=== PATIENT | female | born 1955 | race Caucasian/White ===

== ENCOUNTER 2019-12-02 10:05 | Outpatient (CLI) | payer MEDICARE, SELFPAY ==
--- NOTE | ~2019-12-02 | MM_ITS ---
EXAMINATION: MM screening vani BI w tien HISTORY: Screening mammogram TECHNIQUE: Craniocaudal and mediolateral oblique 3-D tomosynthesis images were obtained and synthetic 2-D images were generated. CAD analysis was submitted and interpreted. COMPARISON: 11/28/2018, 07/12/2017, 07/01/2016 bilateral digital screening mammogram examinations BREAST PARENCHYMAL COMPOSITION: FINDINGS: There is no evidence of suspicious mass, calcification, or architectural distortion to sugg est malignancy in either breast. There has been no suspicious interval change. IMPRESSION: 1. No mammographic evidence of malignancy. 2. Recommend routine screening mammography in one year. BI-RADS Category 1: Negative Reviewed, dictated and finalized at location A. 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
== END 2019-12-02 10:06 | disposition home or self-care (01) ==
LOC: ANHIMG 10:08
PROVIDERS: PCP Family Medicine; Visit Provider Family Medicine
DX: Z12.31 Encounter for screening mammogram for malignant neoplasm of breast (principal)
CPT/HCPCS: 77063; 77067

== ENCOUNTER 2020-08-11 07:56 | Outpatient (CLI) | payer MEDICARE, SELFPAY ==
--- NOTE | ~2020-08-11 | DEXA_ITS ---
Bone Density Report Name: Nuvia Hanks Age: 64 Sex: Female Ethnicity: White Date of : 1955 Indication: postmenopausal; parental hip fracture; Referring Provider: Leonidas Cesar Study: Bone densitometry was performed. Exam Date: August 11, 2020 Accession number: [id number] Bone Density: Region BMD T-score Z-score Classification AP Spine (L1-L4) 0.775 -2.5 -0.6 Osteoporosis Femoral Neck (Left) 0.647 -1.8 -0.2 Osteopenia Total Hip (Left) 0.768 -1.4 -0.1 Osteopenia Total Hip Bilateral Avg 0.805 -1.1 0.2 Osteopenia Femoral Neck (Right) 0.659 -1.7 -0.1 Osteopenia Total Hip (Right) 0.841 -0.8 0.5 Normal World Health Organization criteria for BMD impression classify patients as: Normal (T-score at or above -1.0), Osteopenia (T-score between -1.0 and -2.5), or Osteoporosis (T-score at or below -2.5). Clinical Information Provided by Patient: Parent has had a hip fracture Is being treated for osteoporosis Has used the following medications: Fosamax (i.e. alendronate) Patient maximum height was 67 Menopause Age: 48 No regular weight bearing exercise Drinks caffeinated beverages Onset of menses at age 10 Number of children 2 Missed period for more than 6 months in a row Impression: The patient has osteoporosis, based on the Total Spine T-score. The patient has risk factors, including: parental hip fracture. Discussion: It is important to ask patients whether they are taking their medications and to encourage continued and appropriate compliance with their osteoporosis therapies to reduce fracture risk. It is also important to review their risk factors and encourage appropriate calcium and vitamin D intakes, exercise, fall prevention and other lifestyle measures. Follow-Up: Consider a repeat BMD and Vertebral Fracture Assessment (VFA) exam in 2 years or sooner if medically necessary, to reassess this patient's status. Reported by: ELLIE on 08/11/2020 8:36:00 AM. Reviewed, dictated and finalized at location AAba [facility] CENTER[facility]id
== END 2020-08-11 07:57 | disposition home or self-care (01) ==
PROVIDERS: PCP Family Medicine; Visit Provider Family Medicine
DX: M81.0 Age-related osteoporosis without current pathological fracture (principal); Z78.0 Asymptomatic menopausal state; M85.852 Other specified disorders of bone density and structure, left thigh; M85.851 Other specified disorders of bone density and structure, right thigh
CPT/HCPCS: 77080

== ENCOUNTER 2021-07-28 13:31 | Outpatient (CLI) | payer MEDICARE, SELFPAY ==
--- NOTE | ~2021-07-28 | MM_ITS ---
EXAMINATION: MM screening vani BI w tien HISTORY: Screening mammogram TECHNIQUE: Craniocaudal and mediolateral oblique 3-D tomosynthesis images were obtained and synthetic 2-D images were generated. CAD analysis was submitted and interpreted. Comparison: 12/02/2019, 11/28/2018, 07/12/2017 bilateral digital screening mammogram examinations BREAST PARENCHYMAL COMPOSITION: There are scattered areas of fibroglandular density. FINDINGS: There is no evidence of suspicious mass, calcification, or architectural distortion to sugg est malignancy in either breast. There has been no suspicious interval change. IMPRESSION: 1. No mammographic evidence of malignancy. 2. Recommend routine screening mammography in one year. BI-RADS Category 1: Negative Reviewed, dictated and finalized at location A.
== END 2021-07-28 13:32 | disposition home or self-care (01) ==
PROVIDERS: PCP Family Medicine; Visit Provider Family Medicine
DX: Z12.31 Encounter for screening mammogram for malignant neoplasm of breast (principal)
CPT/HCPCS: 77063; 77067

== ENCOUNTER 2021-09-24 00:30 | Day surgery (SDC) | payer MEDICARE, SELFPAY ==
[2021-09-08 09:45] VITALS: BMI 32.5
[2021-09-24 10:17] VITALS: BP 161/78; PULSE 78; RESP 20; TEMP 36.3; O2SAT 100; BMI 31.8
[2021-09-24] MEDS: LACTATED RINGERS 1,000 ML 150 ML IV CONT (10:27)
--- NOTE | 2021-09-24 10:34 | P.PNAN_ITS ---
Anes - Initial Pre Proc Eval Procedure: Operation Date: 09/24/21 11:30 Proposed Procedures p Screening Colonoscopy - Riki Tao MD Date/Time: 09/24/21 10:34 Surgeon: Riki Tao MD Pre Op Diagnosis: hx of colon polyps Patient Data Age: 65 Gender: F Height: 1.65 m Weight: 86.9 kg Last Vital Signs Temp 36.3 C L 09/24/21 10:17 Pulse 78 09/24/21 10:17 Resp 20 09/24/21 10:17 BP 161/78 H 09/24/21 10:17 Pulse Ox 100 09/24/21 10:17 Allergies Allergy/AdvReac Type Severity Reaction Status Date / Time No Known Allergies Allergy Verified 09/24/21 10:16 Home Medications Medication Instructions Recorded Confirmed Type atorvastatin 20 mg tablet 20 mg PO QHS #90 tablet 07/23/21 09/08/21 Rx fluticasone propionate 50 1 spray INTRANASAL DAILY 07/28/21 09/08/21 History mcg/actuation nasal spray,suspension alendronate [Fosamax] See Rx Instructions .ROUTE .COMPLEX 09/08/21 09/08/21 History cetirizine [Zyrtec] 10 mg PO DAILY 09/08/21 09/08/21 History Patient hx anesthesia problems: none Family hx anesthesia problems: none Results Review: All pre-operative results and documents have been reviewed as part of the pre-operative evaluation. [facility] Surgical History Surgical History History of appendectomy (~1973) Family History Family History Mother Family history of cardiovascular disease, Onset Age: 86 Family history of coronary artery disease, Onset Age: 86 Father Family history of genitourinary disease, Onset Age: 80 Malignant neoplasm of prostate, Onset Age: 80 Other Family history of hypercholesterolemia Social History Social History Smoking status: Never smoker Alcohol intake: never Substance use type: does not use Living arrangements: with family Anes - Eval Final PreProcedure Day of Procedure 09/24/21 10:34 Patient weight: obese Heart: regular rate and rhythm Lungs: clear to auscultation Airway: Mallampati scale class II Neurological: alert and oriented Last oral intake: >/= 8 hours ASA classification: II Emergent: no Anesthetic plan: proceed Anesthesia type and monitoring: general GIVS and standard monitoring Results Review: All pre-operative results and documents have been reviewed as part of the pre-operative evaluation. Informed Consent: The patient's anesthetic plan and its attendant risks and benefits were discussed with the patient/family/POA. Questions were solicited and answers provided to the satisfaction of the patient/family/POA.
--- NOTE | 2021-09-24 10:44 | WPDGICN ---
Assessment and Plan Assessment and plan (1) Encounter for screening colonoscopy: Code(s): Z12.11 - Encounter for screening for malignant neoplasm of colon Status: Acute Assessment and Plan: Patient presents for screening colonoscopy. She did have a benign hyperplastic colon polyp 6 years ago. Further recommendations will be given after endoscopy. GI Consult Note Consult date/time: 09/24/21 10:44 HPI: Nuvia Hanks is a 65 year old female Presents for screening colonoscopy. Patient has a history of colon polyps 6 years ago. She reports that her current weight appetite bowel movements are normal. She denies abdominal pain. She has had no bleeding. Family history is noncontributory. Review of Systems Review of Systems: All systems reviewed & are unremarkable except as noted in HPI and below PMFSH Surgical History Surgical History History of appendectomy (~1973) Family History Family History Mother Family history of cardiovascular disease, Onset Age: 86 Family history of coronary artery disease, Onset Age: 86 Father Family history of genitourinary disease, Onset Age: 80 Malignant neoplasm of prostate, Onset Age: 80 Other Family history of hypercholesterolemia Social History Social History Smoking status: Never smoker Alcohol intake: never Substance use type: does not use Living arrangements: with family Meds Home Medications and Allergies Home Medications Medication Instructions Recorded Confirmed Type atorvastatin 20 mg tablet 20 mg PO QHS #90 tablet 07/23/21 09/08/21 Rx fluticasone propionate 50 1 spray INTRANASAL DAILY 07/28/21 09/08/21 History mcg/actuation nasal spray,suspension alendronate [Fosamax] See Rx Instructions .ROUTE .COMPLEX 09/08/21 09/08/21 History cetirizine [Zyrtec] 10 mg PO DAILY 09/08/21 09/08/21 History Allergies Allergy/AdvReac Type Severity Reaction Status Date / Time No Known Allergies Allergy Verified 09/24/21 10:16 Vital Signs Vital Signs - 24 hr 09/24/21 10:17 Temperature 97.3 F L Pulse Rate 78 Respiratory Rate 20 Blood Pressure 161/78 H Pulse Oximetry 100 Exam Narrative: Physical exam reveals patient be alert. Vital signs stable. HEENT exam is unremarkable. Patient is anicteric. Lungs are clear to auscultation and percussion. Heart is without murmur or extra sounds. Abdominal exam bowel sounds are present soft nontender with no organomegaly. Digital external rectal exam is normal.
[2021-09-24 11:05] VITALS: BP 99/62; PULSE 73; RESP 16; O2SAT 100
[2021-09-24 11:15] VITALS: BP 131/76; PULSE 67; RESP 16; O2SAT 100
[2021-09-24 11:25] VITALS: BP 153/67; PULSE 60; RESP 16; O2SAT 100
== END 2021-09-24 11:35 | disposition home or self-care (01) ==
PROVIDERS: PCP Family Medicine; Visit Provider Internal Medicine Gastroenterology
PROC: 0DJD8ZZ Inspection of Lower Intestinal Tract, Via Natural or Artificial Opening Endoscopic (ICD-10-PCS; CPT 45378; principal; 2021-09-24 11:30)
DX: Z12.11 Encounter for screening for malignant neoplasm of colon (principal); K64.8 Other hemorrhoids; Z86.010 Personal history of colon polyps; E66.9 Obesity, unspecified; Z68.31 Body mass index [BMI] 31.0-31.9, adult
CPT/HCPCS: G0105; J2704; J7120

== ENCOUNTER → 2022-02-24 07:38 | Outpatient (CLI) | payer MEDICARE, SELFPAY ==
--- NOTE | ~2022-02-24 | US_ITS ---
EXAMINATION: US right upper quadrant DATE: 02/24/2022 08:12 INDICATION: Elevated liver function tests TECHNIQUE: Multiple grayscale and Doppler ultrasound images of the abdomen were obtained. COMPARISON: None available FINDINGS: The head and body of the pancreas are normal. The pancreatic tail is obscured by bowel gas. Multiple liver cysts are seen which measure up to 1.9 cm The liver is otherwise normal with normal e chogenicity and echotexture. No surface nodularity. Normal hepatopetal flow in the main portal vein. The gallbladder is normal with no abnormal wall thickening, pericholecystic fluid or stones. The norm al common bile duct measures 3 mm. There was no sonographic Terry sign. IMPRESSION: 1. No sonographic correlate for the patient's symptoms. Reviewed, dictated and finalized at location B.
== END ==
PROVIDERS: PCP Family Medicine; Visit Provider Physician Assistant
DX: R74.8 Abnormal levels of other serum enzymes (principal)
CPT/HCPCS: 76705

== ENCOUNTER 2022-08-22 10:11 | Outpatient (CLI) | payer MEDICARE, SELFPAY ==
--- NOTE | ~2022-08-22 | DEXA_ITS ---
Bone Density Report Name: CHRISTINE HAYDEN Age: 66 Sex: Female Ethnicity: White Date of : 1955 Indication: postmenopausal osteoporosis; monitoring treatment; parental hip fracture; Referring Provider: ANALISA NIELSON Study: Bone densitometry was performed. Exam Date: August 22, 2022 Accession number: [id number] Bone Density: Region BMD T-score Z-score Classification AP Spine(L1-L4) 0.790 -2.3 -0.3 Osteopenia Femoral Neck (Left) 0.634 -1.9 -0.2 Osteopenia Total Hip (Left) 0.783 -1.3 0.1 Osteopenia Femoral Neck (Right) 0.627 -2.0 -0.3 Osteopenia Total Hip (Right) 0.792 -1.2 0.2 Osteopenia Total Hip Mean 0.788 -1.3 0.2 Osteopenia World Health Organization criteria for BMD impression classify patients as: Normal (T-score at or above -1.0), Osteopenia (T-score between -1.0 and -2.5), or Osteoporosis (T-score at or below -2.5). 10-year Fracture Risk: FRAX not reported because: Treated for osteoporosis Previous Exams: Region Exam Age BMD T-score BMD Change BMD Change Date g/cm2 vs Baseline vs Previous AP Spine (L1-L4) 08/22/2022 66 0.790 -2.3 0.015 (2.0%) 0.015 (2.0%) 08/11/2020 64 0.775 -2.5 Total Hip(Left) 08/22/2022 66 0.783 -1.3 0.015 (1.9%) 0.015 (1.9%) 08/11/2020 64 0.768 -1.4 Total Hip(Right) 08/22/2022 66 0.792 -1.2 -0.048 (-5.8%) -0.048 (-5.8%) 08/11/2020 64 0.841 -0.8 *Denotes significance at 95% confidence level, LSC for AP Spine = 0.022 g/cm2, LSC for Total Hip = 0.027 g/cm2 Clinical Information Provided by Patient: Parent has had a hip fracture Is being treated for osteoporosis Has used the following medications: Fosamax (i.e. alendronate), Vitamin D, Calcium Patient maximum height was 64 Menopause Age: 48 Drinks caffeinated beverages Onset of menses at age 11 Number of children 2 Impression: The patient has low bone mass, based on the Total Spine T-score. The patient has risk factors, including: parental hip fracture. The BMD for the Total Hip(Right) decreased, changing by -5.8% since the last DXA exam. Discussion: SIGNIFICANT BONE LOSS OBSERVED. Adherence to therapy (including calcium and vitamin D intake) should be assessed. If compliance is not a factor, review management and exclusion of secondary causes of bone loss. It is important to ask patients whether they are taking their medications and to encourage continued and appropriate compliance with their osteoporosis therapies to redu
--- NOTE | ~2022-08-22 | MM_ITS ---
EXAMINATION: MM screening vani BI w tien HISTORY: Screening TECHNIQUE: Craniocaudal and mediolateral oblique 3-D tomosynthesis images were obtained and synthetic 2-D images were generated. CAD analysis was submitted and interpreted. COMPARISON: Comparison to multiple prior studies sequentially, with oldest reviewed study dated 05/02. BREAST PARENCHYMAL COMPOSITION: Breast composed of scattered areas of fibroglandular density FINDINGS: There is no evidence of suspicious mass, calcification, or architectural distortion to sugg est malignancy in either breast. There has been no suspicious interval change. IMPRESSION: 1. No mammographic evidence of malignancy. 2. Recommend routine screening mammography in one year. BI-RADS Category 1: Negative Reviewed, dictated and finalized at location A.
== END 2022-08-22 10:12 | disposition home or self-care (01) ==
LOC: ANHIMG 10:15
PROVIDERS: PCP Family Medicine; Visit Provider Physician Assistant
DX: Z12.31 Encounter for screening mammogram for malignant neoplasm of breast (principal); M81.0 Age-related osteoporosis without current pathological fracture; M85.88 Other specified disorders of bone density and structure, other site; M85.852 Other specified disorders of bone density and structure, left thigh; M85.851 Other specified disorders of bone density and structure, right thigh
CPT/HCPCS: 77063; 77067; 77080

== ENCOUNTER 2023-11-22 13:29 | Outpatient (CLI) | payer MEDICARE, SELFPAY ==
--- NOTE | ~2023-11-22 | MM_ITS ---
EXAMINATION: MM screening [facility] BI w tien HISTORY: Screening TECHNIQUE: Craniocaudal and mediolateral oblique 3-D tomosynthesis images were obtained and synthetic 2-D images were generated. CAD analysis was submitted and interpreted. COMPARISON: Comparison to multiple prior studies sequentially, with oldest reviewed study dated 06/2016. BREAST PARENCHYMAL COMPOSITION: There are scattered areas of fibroglandular density. FINDINGS: There is no evidence of suspicious mass, calcification, or architectural distortion to sugg est malignancy in either breast. There has been no suspicious interval change. IMPRESSION: 1. No mammographic evidence of malignancy. 2. Recommend routine screening mammography in one year. BI-RADS Category 1: Negative Reviewed, dictated and finalized at location A. 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
== END 2023-11-22 13:30 | disposition home or self-care (01) ==
LOC: ANHIMG 13:31
PROVIDERS: PCP Family Medicine; Visit Provider Physician Assistant
DX: Z12.31 Encounter for screening mammogram for malignant neoplasm of breast (principal)
CPT/HCPCS: 77063; 77067

== ENCOUNTER 2024-04-19 14:14 | Emergency (ER) | payer MEDICARE, SELFPAY ==
--- NOTE | ~2024-04-19 | XR_ITS ---
EXAMINATION: XR hand LT min 3V, XR wrist LT min 3V DATE: 04/19/2024 15:09 INDICATION: Left hand and wrist pain and knot posterior to the metacarpals at the left hand post fall TECHNIQUE: 1. Posteroanterior, ulnar deviation, oblique, and lateral views of the left wrist were obtained. 2. Dorsal palmar, oblique and lateral views of the left hand were obtained. COMPARISON: None. FINDINGS: Alignment of the left hand and wrist is normal. No fracture identified. 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 No focal soft tissue swelling. IMPRESSION: 1. Typical distribution of mild to moderate distal interphalangeal predominant polyarticular osteoart hritis. No acute osseous abnormality. Reviewed, dictated and finalized at location B. IMPRESSION: 1. 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 No acute osseous abnormality.
[2024-04-19 14:19] VITALS: BP 144/73; PULSE 94; RESP 20; TEMP 36.6; O2SAT 97
--- NOTE | 2024-04-19 14:53 | ED.UPPEXIN ---
HPI - Extremity Injury (Upper) General Chief Complaint: Extremity Injury, Upper Stated Complaint: left wrist injury Time Seen by Provider: 04/19/24 16:21 Focused HPI: 68-year-old female presents to the emergency department for left wrist and hand pain after injury that occurred this afternoon. Patient states she was pulling tension on a tree branch while her cut the tree branch, and when the tree branch was cut she fell backwards and landed on her left side. States she landed on her left hand outstretched to catch herself. She denies hitting her head or losing consciousness. She denies neck pain or back pain or other injuries acquired. She is only complaining of pain to the dorsum of her left wrist/ hand. She is not anticoagulated. GENERAL: Well-appearing, well-nourished, and in no acute distress. HEAD: Normocephalic, atraumatic. CHEST: Clear to auscultation. ?No respiratory distress. EXTEMITIES: LUE: Hematoma ecchymosis to the dorsum of the left hand over the proximal aspect of the 1st and 2nd metacarpals. Mild tenderness overlying the wrist. No tenderness remainder of upper extremity. No snuffbox tenderness. Patient is more range of motion of fingers, Radial, median and ulnar nerves are intact. Sensation intact in throughout. Radial pulse 2 +. HEART: Regular rate and rhythm.? NEURO: ?Alert and oriented x3. Patient screened in triage and initial orders placed.? ?Additional care and disposition to be based upon?diagnostic testing and treatment. History of Present Illness HPI narrative: 68-year-old female presents to the emergency department for left wrist and hand pain after injury that occurred this afternoon. Patient states she was pulling tension on a tree branch while her cut the tree branch, and when the tree branch was cut she fell backwards and landed on her left side. States she landed on her left hand outstretched to catch herself. She denies hitting her head or losing consciousness. She denies neck pain or back pain or other injuries acquired. She is only complaining of pain to the dorsum of her left wrist/ hand. She is not anticoagulated. Related Data Home Medications Medication Instructions Recorded Confirmed cetirizine 10 mg tablet (Zyrtec) 10 mg PO DAILY 09/08/21 01/11/24 alendronate 70 mg tablet See Rx Instructions .Route .COMPLEX 12/04/23 01/11/24 Allergies Allergy/AdvReac Type Severity Reaction Status Date / Time No Known Allergies Allergy Verified 04/18/24 10:45 Review of Systems Review of Systems: CONSTITUTIONAL: Denies fever, chills, or sweats. EYES: Denies visual changes, redness, or discharge. ENT: Denies rhinorrhea, congestion, sore throat, or otalgia. CARDIOVASCULAR: Denies chest pain, palpitations, or edema. RESPIRATORY: Denies cough or dyspnea. GASTROINTESTINAL: Denies abdominal pain, nausea, vomiting, or diarrhea. GENITOURINARY: Denies dysuria or hematuria. SKIN: Denies rash or itching. MUSCULOSKELETAL: See HPI NEUROLOGIC: Denies headache, numbness, or weakness. PSYCHIATRIC: Denies anxiety or depression. [facility] Past Medical History Medical History Encounter for screening colonoscopy 09.24.21 Health maintenance examination 07.21.22 Keratoacanthoma Lesion of external auditory canal Non-healing skin lesion Otitis externa of left ear Seborrheic keratosis Surgical History Surgical History History of appendectomy (~1973) Family History Family History Mother Family history of cardiovascular disease, Onset Age: 86 Family history of coronary artery disease, Onset Age: 86 Father Family history of genitourinary disease, Onset Age: 80 Malignant neoplasm of prostate, Onset Age: 80 Other Family history of hypercholesterolemia Social History Social Hist
[2024-04-19 16:47] VITALS: PULSE 77; RESP 16; O2SAT 100
== END 2024-04-19 16:48 | disposition home or self-care (01) ==
PROVIDERS: Emergency Provider Physician Assistant; PCP Family Medicine
DX: S63.502A Unspecified sprain of left wrist, initial encounter (principal); W18.39XA Other fall on same level, initial encounter
CPT/HCPCS: 73110; 73130; 99283

== ENCOUNTER 2024-12-25 15:23 | Outpatient (CLI) | payer MEDICARE, SELFPAY ==
--- NOTE | ~2024-12-25 | MM_ITS ---
EXAMINATION: MM screening vani BI w tien HISTORY: Screening mammogram TECHNIQUE: Craniocaudal and mediolateral oblique 3-D tomosynthesis images were obtained and synthetic 2-D images were generated. CAD analysis was submitted and interpreted. COMPARISON: 11/22/2023, 08/22/2022, 07/28/2021, 12/02/2019 BREAST PARENCHYMAL COMPOSITION:Not Dense. There are scattered areas of fibroglandular density. FINDINGS: No suspicious mass, calcification, or architectural distortion are identified in either jennifer ast to suggest malignancy. There has been no suspicious interval change. IMPRESSION: No mammographic evidence of malignancy. Recommend routine screening mammography in one year. BI-RADS Category 1: Negative Reviewed, dictated and finalized at location . 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
--- OUTSIDE RECORDS SUMMARY | 2024-12-25 17:07 | XMS_ITS | Continuity of Care Document ---
Author Organization [facility] Address [address] [place] [address] Phone Care Team Providers Care [facility] Sales Representative Name Role Phone Connelly OD, Riki Unavailable Unavailable Advance Directives Directive Yes / No Effective Date File Name No Information Encounters Encounter Description Practice Location Reason(s) For Visit Diagnoses Date Provider Providers Copied on Encounter [facility], [address], [place], [place], [id number], [place] tel:[phone] [facility] No Information Apr-2 6-200 5 Connelly OD Riki. [address] , [address], [place], [address], [place]. tel:[phone] Family History Family Member Type Diagnosis Age At Onset No Information Payers Payer name Insurance type Covered green party ID Authoriza tion(s) No Information Social History Type Description Quantity Date Captured Comments Sex Female Smoking Status No Information Chief Complaint And Reason For Visit No Information Reason For Referral Reason For Referral No Information History Of Present Illness Encounter Date Complaint History Of Prese nt Illness No Information Functional Status Date Functional Assessmen t No Information Instructions Date Instruction Additional Infor mation No Information Assessments Type Assessment Date No Information Patient Care Teams Name Effective Dates (start - stop) Status Members No Information
== END 2024-12-25 15:24 | disposition home or self-care (01) ==
LOC: ANHIMG 15:25
PROVIDERS: PCP Family Medicine; Visit Provider Family Medicine
DX: Z12.31 Encounter for screening mammogram for malignant neoplasm of breast (principal)
CPT/HCPCS: 77063; 77067

== ENCOUNTER 2025-08-18 15:01 | Outpatient (CLI) | payer MEDICARE, SELFPAY ==
--- NOTE | ~2025-08-18 | DEXA_ITS ---
Bone Density Report Name: CHRISTINE HAYDEN Age: 69 Sex: Female Ethnicity: White Date of : 1955 Indication: osteopenia; monitoring treatment; parental hip fracture; Referring Provider: KIANA DELACRUZ Study: Bone densitometry was performed. Exam Date: August 18, 2025 Accession number: [id number] Bone Density: Region BMD T-score Z-score Classification AP Spine(L1-L4) 0.813 -2.1 0.1 Osteopenia Femoral Neck (Left) 0.626 -2.0 -0.1 Osteopenia Total Hip (Left) 0.740 -1.7 -0.1 Osteopenia Femoral Neck (Right) 0.652 -1.8 0.1 Osteopenia Total Hip (Right) 0.766 -1.4 0.2 Osteopenia Total Hip Mean 0.753 -1.6 0.1 Osteopenia World Health Organization criteria for BMD impression classify patients as: Normal (T-score at or above -1.0), Osteopenia (T-score between -1.0 and -2.5), or Osteoporosis (T-score at or below -2.5). 10-year Fracture Risk: FRAX not reported because: Treated for osteoporosis Previous Exams: -- Region Exam Age BMD T-score BMD Change BMD Change Date g/cm2 vs Baseline vs Previous -- AP Spine (L1-L4) 08/18/2025 69 0.813 -2.1 8.3%# 2.8%# 08/22/2022 66 0.790 -2.3 5.3%# 9.2%# 07/12/2017 61 0.723 -2.9 -3.6%* -3.6%* 02/10/2014 58 0.750 -2.7 Total Hip(Left) 08/18/2025 69 0.740 -1.7 -10.8%# -5.5%* 08/22/2022 66 0.783 -1.3 -5.6%# -2.4%# 07/12/2017 61 0.802 -1.1 -3.3%* -3.3%* 02/10/2014 58 0.830 -0.9 Total Hip(Right) 08/18/2025 69 0.766 -1.4 -5.7%# -3.3% 08/22/2022 66 0.792 -1.2 -2.5%# 4.3%# 07/12/2017 61 0.759 -1.5 -6.5%* -6.5%* 02/10/2014 58 0.812 -1.1 -- *Denotes significance at 95% confidence level, LSC for AP Spine = 0.022 g/cm2, LSC for Total Hip = 0.027 g/cm2 # Denotes dissimilar scan types or analysis methods Clinical Information Provided by Patient: Parent has had a hip fracture Is being treated for osteoporosis Has used the following medications: Fosamax (i.e. alendronate), Prolia (i.e. denosumab), Vitamin D Patient maximum height was 66 Menopause Age: 48 No regular weight bearing exercise Drinks caffeinated beverages Onset of menses at age 15 Number of children 2 Impression: The patient has low bone mass, based on the Total Spine T-score. The patient has risk factors, including: parental hip fracture. The BMD for the Total Hip(Left) decreased, changing by -5.5% since the last DXA exam. Discussion: SIGNIFICANT BONE LOSS OBSERVED. Adherence to therapy (including calcium and vitamin D intake) should be assessed. If compliance is not a factor, review management and exclusion of secondary causes of bone loss. It is important to ask patients whether they are taking their medications and to encourage continued and appropriate compliance with their osteoporosis therapies to reduce fracture risk. It is also important to review their risk factors and encourage appropriate calcium and vitamin D intakes, exercise, fall prevention and other lifestyle measures. Follow-Up: Consider a repeat BMD and Vertebral Fracture Assessment (VFA) exam in 2 years or sooner if medically necessary, to reassess this patient's status. Reported by: STEPHEN on 08/18/2025 3:32:00 PM. Reviewed, dictated and finalized at location A.
== END 2025-08-18 15:02 | disposition home or self-care (01) ==
LOC: MICIMG 15:04
PROVIDERS: PCP Family Medicine; Visit Provider Student in an Organized Health Care Education/Training Program
DX: Z78.0 Asymptomatic menopausal state (principal); M85.88 Other specified disorders of bone density and structure, other site; M85.852 Other specified disorders of bone density and structure, left thigh; M85.851 Other specified disorders of bone density and structure, right thigh
CPT/HCPCS: 77080